=== PATIENT | male | born 1960 | race Caucasian/White ===

== ENCOUNTER 2023-10-30 11:09 | Observation (INO) ==
[2023-10-30] MEDS ORDERED: Flumazenil 0.5 mg/5 ml 0.1 MG/ML 5 ml VIAL IV PRN (11:57)
[2023-10-30] MEDS ORDERED: Naloxone 0.4 mg VIAL 0.4 mg/ml 1 ml VIAL IV PUSH PRN (11:57)
[2023-10-30 12:25] LABS: ABS Basophils 0.1 10^3/uL (0.0-0.1); ABS Eosinophils 0.1 10^3/uL (0.0-0.5); ABS Lymphocytes 2.3 10^3/uL (1.0-4.8); ABS Monocytes 0.4 10^3/uL (0.0-1.1); ABS Neutrophils 3.6 10^3/uL (1.5-7.6); ABS Nucleated RBC 0.04 10^3/ul; Eosinophil % 1.9 %; Hematocrit 45.1 % (38-53); Hemoglobin 15.5 g/dL (13.2-16.3); Lymphocyte % 34.6 %; Mean Corpuscular Hemoglobin 29.6 pg (27-33); Mean Corpuscular Hgb Conc 34.3 g/dL (31-36); Mean Corpuscular Volume 86.4 fL (80-97); Mean Platelet Volume 8.7 fL (7.5-11.2); Nucleated Red Blood Cells % 0.6 %/100WBC (0.0-0.8); Platelet Count 158 10^3/uL (150-450); Red Blood Count 5.22 10^6/uL (4.06-5.63); Red Cell Distribution Width 14.4 % (12-17); White Blood Count 6.5 10^3/uL (3.6-10.2)
[2023-10-30] MEDS: NS 0.9% 1000 ml BAG 1,000 ML IV ONE (12:31)
[2023-10-30] MEDS: Midazolam 10 mg/10 ml VIAL 1 mg/ml 10 ml VIAL (10 mg) IV SLOW PU ONE (12:32)
[2023-10-30] MEDS: fentaNYL 100 mcg/2 ml 50 MCG/ML VIAL IV SLOW PU ONE (12:32)
[2023-10-30 12:39] LABS: Activated Partial Thrombo Time 40.7 seconds (26.0-38.0); INR 1.36 (0.83-1.13)
[2023-10-30] MEDS: cefTRIAXone 1 gm/50 mL D5W 1 GM/50 ML BAG IV ONE (12:57)
[2023-10-30] MEDS ORDERED: fentaNYL 100 mcg/2 ml 50 MCG/ML VIAL ONE ×2 (12:58→14:56)
[2023-10-30] MEDS ORDERED: Midazolam 5 mg/5 ml VIAL 1 mg/ml 5 ml VIAL (5 mg) ONE (12:58)
[2023-10-30 12:59] LABS: Calcium 9.2 mg/dL (8.6-10.3); Creatinine, Serum 0.95 mg/dL (0.67-1.17); Potassium 3.3 mmol/L (3.5-5.0); eGFR CKD-EPI 91.1 (>60)
[2023-10-30] MEDS ORDERED: Iohexol 350 (CONTRAST) 100 ML PAK IV ONE ×3 (13:04→14:10)
[2023-10-30] MEDS ORDERED: Heparin 2 UNITS/ML IVPREMIX 3,000 UNIT/1,500 ML BAG IV ONE (13:04)
[2023-10-30] MEDS ORDERED: Lidocaine 1% VIAL 10 MG/ML 30 ML VIAL ONE (13:04)
[2023-10-30] MEDS ORDERED: Ondansetron 4 mg VIAL 2 MG/ML 2 ml VIAL ONE (14:36)
[2023-10-30] MEDS ORDERED: Gelfoam 12-7 ADSORBABL SPONGE ONE (14:50)
[2023-10-30] MEDS ORDERED: Prochlorperazine 5 mg/ml 2 ml VIAL (10 mg) ONE (15:27)
[2023-10-30] MEDS: Prochlorperazine 5 mg/ml 2 ml VIAL (10 mg) IV ONE (15:28)
[2023-10-30] MEDS: [UNRECOGNIZED DRUG - OTHER] ONE (15:52)
[2023-10-30] MEDS ORDERED: HYDROmorphone 1 MG/1 ML SYRINGE ONE (16:06)
[2023-10-30] MEDS ORDERED: Morphine 2 MG/ML SYRINGE IV PRN (16:14)
[2023-10-30] MEDS: Ondansetron 4 mg VIAL 2 MG/ML 2 ml VIAL IV PRN (17:06)
[2023-10-30] MEDS: Potassium Chlor 20 meq TAB.ER PO ONE (17:09)
[2023-10-30] MEDS: NS 0.9% 1000 ml BAG 1,000 ML IV SCH (17:09)
[2023-10-31 06:34] LABS: ABS Basophils 0.1 10^3/uL (0.0-0.1); ABS Lymphocytes 1.2 10^3/uL (1.0-4.8); ABS Monocytes 0.6 10^3/uL (0.0-1.1); ABS Neutrophils 8.5 10^3/uL (1.5-7.6); ABS Nucleated RBC 0.05 10^3/ul; Hemoglobin 16.4 g/dL (13.2-16.3); Lymphocyte % 11.6 %; Mean Corpuscular Hemoglobin 30.3 pg (27-33); Mean Corpuscular Volume 86.5 fL (80-97); Mean Platelet Volume 9.3 fL (7.5-11.2); Nucleated Red Blood Cells % 0.4 %/100WBC (0.0-0.8); Platelet Count 177 10^3/uL (150-450); Red Blood Count 5.43 10^6/uL (4.06-5.63); Red Cell Distribution Width 14.4 % (12-17); White Blood Count 10.3 10^3/uL (3.6-10.2)
[2023-10-31 09:40] LABS: Albumin 4.3 g/dL (3.2-5.2); Albumin/Globulin Ratio 1.3 (1-3); Calcium 9.4 mg/dL (8.6-10.3); Creatinine, Serum 1.01 mg/dL (0.67-1.17); Globulin 3.4 g/dL (2-4); Potassium 3.8 mmol/L (3.5-5.0); Total Bilirubin 1.9 mg/dL (0.2-1.0); Total Protein 7.7 g/dL (6.4-8.9); eGFR CKD-EPI 84.6 (>60)
== END 2023-10-31 11:10 | disposition home or self-care (01) ==
LOC: CHICATH 11:09 → MEDTELE 15:52 → INTOOBSV 15:52 → MEDTELE 19:40
PROVIDERS: ADMIT Registered Nurse Oncology; ATTEND Student in an Organized Health Care Education/Training Program